=== PATIENT | female | born 1995 ===

== ENCOUNTER 2018-07-24 20:42 | Emergency (ER) | payer SELFPAY ==
[2018-07-24] MEDS ORDERED: TYLENOL PO ONE (21:05)
[2018-07-24] MEDS ORDERED: TYLENOL ONE (21:08)
[2018-07-24 21:13] VITALS: BP 113/73
== END 2018-07-24 21:10 | disposition left against medical advice (07) ==
LOC: ED 20:42
DX: R07.89 Other chest pain (principal); R51 Headache; Z53.21 Procedure and treatment not carried out due to patient leaving prior to being seen by health care provider
CPT/HCPCS: 93005; 93010